=== PATIENT | male | born 1990 | race Caucasian/White ===

== ENCOUNTER 2017-01-27 16:15 | Emergency (ER) | payer SELFPAY ==
[~2017-01-27] VITALS: Ht 188 cm; Wt 80.0 kg
[2017-01-27 16:27] VITALS: BP 112/59; PULSE 89; RESP 17; TEMP 98.3; O2SAT 98
[2017-01-27 16:32] VITALS: RESP 17; O2SAT 97
--- NOTE | 2017-01-27 16:41 | RADRPT ---
EXAM DATE/TIME: 01/27/2017 16:26 [facility] COMPARISON: CHEST SINGLE AP, April 19, 2015, 4:19. INDICATIONS : Chest pain and cough. MEDICAL HISTORY : Asthma. SURGICAL HISTORY : None. ENCOUNTER: Initial ACUITY: 1 day PAIN SCORE: 6/10 LOCATION: Bilateral chest FINDINGS: A single view of the chest demonstrates the lungs to be symmetrically aerated without evidence of mas s, infiltrate or effusion. The cardiomediastinal contours are unremarkable. Osseous structures are intact. CONCLUSION: No acute cardiopulmonary process to explain current clinical symptoms. Lungs are clear. Aguila Oreilly MD on January 27, 2017 at 16:39 Board Certified Radiologist. This report was verified electronically.
[2017-01-27 16:50] LABS: AUTOMATED NEUTROPHIL # 2.6 TH/MM3 (1.8-7.7); BASOPHIL % 0.7 % (0.0-2.0); EOSINOPHIL # 0.1 TH/MM3 (0-0.4); EOSINOPHIL % 2.2 % (0.0-4.0); HEMATOCRIT 38.9 % (39.0-51.0); HEMO FLAGS DIFF FINAL; LYMPH % 33.1 % (9.0-44.0); LYMPHOCYTE # 1.6 TH/MM3 (1.0-4.8); MEAN CELL VOLUME 83.3 FL (80.0-100.0); MEAN CORPUSCULAR HEMOGLOBIN 29.1 PG (27.0-34.0); PLATELET COUNT 169 TH/MM3 (150-450); RED BLOOD COUNT 4.66 MIL/MM3 (4.50-5.90); RED CELL DISTRIBUTION WIDTH 13.4 % (11.6-17.2)
[2017-01-27 17:20] LABS: ANION GAP 10 MEQ/L (5-15); BICARBONATE 24.9 MEQ/L (21.0-32.0); BLOOD UREA NITROGEN 9 MG/DL (7-18); CHLORIDE 107 MEQ/L (98-107); GLOMERULAR FILTRATION RATE 96 ML/MIN (>89); POTASSIUM 3.5 MEQ/L (3.5-5.1); SODIUM (NA) 142 MEQ/L (136-145)
--- NOTE | 2017-01-27 17:29 | PD ---
HPI Chief Complaint: Chest Pain Time Seen by Provider: 17:25 Travel History International Travel<30 days: No Contact w/Intl Traveler<30days: No Traveled to known affect area: No History of Present Illness HPI 26-year-old male that presents to the ED for evaluation of chest pain. Patient states that he had the chest pain for about half an hour. Patient was arrested by police secondary to battery and resisting arrest. Patient tells me that his been using drugs today. Per patient he is a lot of and amphetamines. He states that the chest pain happened after he was arrested. He denies any injury or trauma. Patient was brought here on 10 cups by ambulance. Patient comes here with police present. States that the pain is sharp. Nothing makes it better or worse. Denies any history of heart disease. History of MRSA and penicillin allergy. Patient is somewhat aggressive and uncooperative. History is somewhat limited because of this. PFSH Past Medical History Asthma: Yes ( A CHILD) Anxiety: Yes Depression: Yes Cancer: No Cardiovascular Problems: No Endocrine: No Genitourinary: No Medical other: Yes (PTSD) Musculoskeletal: No Neurologic: No Psychiatric: No Reproductive: No Respiratory: Yes (CHILD ASTHMA ) Past Surgical History Abdominal Surgery: No Cardiac Surgery: No Thoracic Surgery: No Other Surgery: Yes (SKIN LAC L CHEST/NECK) Social History Alcohol Use: Yes (OCC ) Tobacco Use: Yes Substance Use: Yes (MARIJUANA, DILAUDID, METHADONE) Allergies-Medications (Allergen,Severity, Reaction): Coded Allergies: Penicillin (Verified Allergy, Unknown, 01/27/17) *MDRO Multi-Drug Resistant Organism (Verified Adverse Reaction, Unknown, ) MRSA PCR (nares) positive 04/19/2015 Review of Systems ROS Limitations: Uncooperative Except as stated in HPI: all other systems reviewed are Neg Physical Exam Exam Limitations: Uncooperative Narrative GENERAL: SKIN: Warm and dry. HEAD: Atraumatic. Normocephalic. EYES: Pupils equal and round. No scleral icterus. No injection or drainage. ENT: No nasal bleeding or discharge. Mucous membranes pink and moist. Tongue is midline. No uvula deviation. NECK: Trachea midline. No JVD. CARDIOVASCULAR: Regular rate and rhythm. No murmurs, S3, S4. RESPIRATORY: No accessory muscle use. Clear to auscultation. Breath sounds equal bilaterally. GASTROINTESTINAL: Abdomen soft, non-tender, nondistended. Hepatic and splenic margins not palpable. MUSCULOSKELETAL: Extremities without clubbing, cyanosis, or edema. No obvious deformities. Full range of motion of the upper and lower extremities bilaterally. 2+ pulses bilaterally. NEUROLOGICAL: Awake and alert. No obvious cranial nerve deficits. Motor grossly within normal limits. Five out of 5 muscle strength in the arms and legs. Normal speech. PSYCHIATRIC: Aggressive mood and affect; insight and judgment normal. Data Data Last Documented VS Vital Signs Date Time Temp Pulse Resp B/P Pulse Ox O2 Delivery O2 Flow Rate FiO2 01/27/17 16:32 17 97 Room Air 01/27/17 16:27 98.3 89 112/59 Orders Electrocardiogram (01/27/17 16:24) Complete Blood Count With Diff (01/27/17 16:24) Basic Metabolic Panel (Bmp) (01/27/17 16:24) Ckmb (Isoenzyme) Profile (01/27/17 16:24) Troponin I (01/27/17 16:24) Chest, Single Ap (01/27/17 16:24) Iv Access Insert/Monitor (01/27/17 16:24) Ecg Monitoring (01/27/17 16:24) Oximetry (01/27/17 16:24) Drug Screen, Random Urine (01/27/17 16:24) Labs Laboratory Tests Test 01/27/17 16:25 White Blood Count 5.0 TH/MM3 Red Blood Count 4.66 MIL/MM3 Hemoglobin 13.6 GM/DL Hematocrit 38.9 % Mean Corpuscular Volume 83.3 FL Mean Corpuscular Hemoglobin 29.1 PG Mean Corpuscular Hemoglobin 35.0 % Concent Red Cell Distribution Width 13.4 % Platelet Count 169 TH/MM3 Mean Platelet Volume 9.9 FL Neutrophils (%) (Auto) 53.0 % Lymphocytes (%) (Auto) 33.1 % Monocytes (%) (Auto) 11.0 % Eosinophils (%) (Auto) 2.2 % Basophils (%) (Auto) 0.7 % Neutrophils # (Auto) 2.6 TH/MM3 Lymphocytes # (Auto) 1.6 TH/MM3 Monocytes # (Auto) 0.5 TH/MM3 Eosinophils # (Auto) 0.1 TH/MM3 Basophils # (Auto) 0.0 TH/MM3 CBC Comment DIFF FINAL Differential Comment Sodium Level 142 MEQ/L Potassium Level 3.5 MEQ/L Chloride Level 107 MEQ/L Carbon Dioxide Level 24.9 MEQ/L Anion Gap 10 MEQ/L Blood Urea Nitrogen 9 MG/DL Creatinine 0.96 MG/DL Estimat Glomerular Filtration 96 ML/MIN Rate Random Glucose 102 MG/DL Calcium Level 8.6 MG/DL [facility] Medical Decision Making Medical Screen Exam Complete: Yes Emergency Medical Condition: Yes Medical Record Reviewed: Yes Interpretation(s) EKG shows sinus rhythm with no sign of acute ischemia or arrhythmia read by me and attending. Troponin and CK-MB negative. CBC & BMP Diagram 01/27/17 16:25 Last Impressions Chest X-Ray 01/27/17 1624 Signed Impressions: Service Date/Time: Sunday, January 27, 2017 16:26 - CONCLUSION: No acute cardiopulmonary process to explain current clinical symptoms. Lungs are clear. Aguila Oreilly MD Differential Diagnosis Chest pain versus acute chest pain versus atypical chest pain versus incarceration Narrative Course 26-year-old male that presents to the ED for evaluation of chest pain. Patient was properly examined and was found to have signs and symptoms consistent with a typical chest pain. No sign of acute medical distress. He does continue to complain of the chest pain. At this time I recommend labs and imaging. Labs and imaging were sent and unremarkable here. This appears to be a typical chest pain. Patient has been using profanity and being aggressive towards staff. Patient was kept in handcuffs in police custody. I was told by ED nurse that patient did confess to the ED nurse that he told him about the chest pain because he didn't want to go to skilled nursing. No sign of acute medical distress. This time I do not see any need for further studies. This is likely malingering. Patient will be medically clear. Okay to be seen at skilled nursing. Follow up with PCP. See ED if worst. Diagnosis Primary Impression: Atypical chest pain Patient Instructions: General Instructions Additional Instructions: see ED if worst. F/u with PCP. Disposition: [address] LAW ENFORCEMNT Condition: Stable Gatito Gonzáles January 27, 2017 17:29
[2017-01-27 17:34] LABS: CREATINE KINASE 46 U/L (39-308)
--- NOTE | 2017-01-28 16:57 | EKG ---
Date Performed: 01/27/2017 Time Performed: 16:37:19 PTAGE: 26 years EKG: Sinus rhythm NORMAL ECG NO PREVIOUS TRACING DOCTOR: Brenda Wheatley Interpretating Date/Time 01/28/2017 16:57:05
== END 2017-01-27 18:13 ==
LOC: NEPD 16:15
DX: R07.89 Other chest pain (principal); Z72.0 Tobacco use
CPT/HCPCS: 71010; 80048; 82550; 84484; 85025; 93005